=== PATIENT | male | born 1965 | race Caucasian/White ===

== ENCOUNTER 2017-05-27 21:50 | Emergency (ER) | payer OTHER ==
[~2017-05-27] VITALS: Ht 190.5 cm; Wt 95.3 kg
--- NOTE | ~2017-05-27 | EKG ---
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 05/28/17 1422 2219 18 Rito Floyd MD, FACC /EPI
[2017-05-27 22:13] LABS: URINE BILIRUBIN NEGATIVE (Negative); URINE BLOOD NEGATIVE (Negative); URINE COLOR YELLOW; URINE GLUCOSE-RANDOM* NEGATIVE (Negative); URINE KETONES NEGATIVE (Negative); URINE LEUKOCYTES-REFLEX NEGATIVE (Negative); URINE PROTEIN (DIPSTICK) NEGATIVE (Negative); URINE SPECIFIC GRAVITY 1.015 (1.003-1.035); URINE UROBILINOGEN 0.2 E.U./dl (0.2-1.0)
[2017-05-27 22:21] LABS: AMP/METHAMP POSITIVE (Negative); BARBITURATES Negative (Negative); BENZODIAZEPINES POSITIVE (Negative); COCAINE Negative (Negative); METHADONE Negative (Negative); OPIATES Negative (Negative); PCP Negative (Negative); THC Negative (Negative)
[2017-05-27 22:51] LABS: ABSOLUTE NEUTROPHILS 3.9 thou/uL (1.4-8.2); BASOPHILS 0.9 % (0.0-2.0); EOSINOPHILS 1.4 % (0.0-3.0); HEMATOCRIT 41.1 % (42.0-52.0); HEMOGLOBIN 14.2 gm/dL (14.0-18.0); LYMPHOCYTES 29.2 % (24.0-44.0); MCH 35.3 pg (26.0-34.0); MCHC 34.5 g/dL (28.0-37.0); MCV 102.4 fL (80.0-100.0); MONOCYTES 9.2 % (1.0-8.0); PLATELET COUNT 230 thou/uL (150-400); POLYS 59.3 % (36.0-66.0); RBC 4.01 mil/uL (4.50-6.00); RDW 13.6 % (10.5-14.5); WBC 6.6 thou/uL (4.0-11.0)
[2017-05-27 22:53] LABS: MANUAL DIFF NO
[2017-05-27 22:59] LABS: ANION GAP 10 mmol/L (7-16); BUN 13 mg/dL (7-18); CALCIUM 9.3 mg/dL (8.5-10.1); CHLORIDE 100 mmol/L (98-107); CO2 27 mmol/L (21-32); GLUCOSE 196 mg/dL (74-106); POTASSIUM 3.6 mmol/L (3.5-5.1); SODIUM 137 mmol/L (136-145)
[2017-05-27 23:08] LABS: ALBUMIN 3.6 g/dL (3.4-5.0); ALKALINE PHOSPHATASE 52 U/L (46-116); MAGNESIUM 1.4 mg/dL (1.8-2.4); SGOT 33 U/L (15-37); SGPT 47 U/L (30-65); TOTAL PROTEIN 6.8 g/dL (6.4-8.2); TROPONIN-I < 0.04 ng/mL (<0.06)
[2017-05-27 23:37] LABS: SALICYLATE < 2.8 mg/dL (2.8-20.0)
[2017-05-27 23:39] LABS: ACETAMINOPHEN < 2 ug/mL (10-30)
[2017-05-28] MEDS ORDERED: MAG-OXIDE400 MG PO (01:28)
[2017-05-28] MEDS ORDERED: ATIVAN1 MG PO (01:28)
[2017-05-28] MEDS ORDERED: CLONIDINE0.1 PO (01:28)
[2017-05-28] MEDS ORDERED: TRAMADOL 50 MG50 MG PO (01:30)
[2017-05-28 02:24] VITALS: BP 169/99
== END 2017-05-28 02:25 | disposition home or self-care (01) ==
LOC: ER 21:50
PROVIDERS: Emergency Medicine
DX: F10.10 Alcohol abuse, uncomplicated (principal); D53.9 Nutritional anemia, unspecified; E83.42 Hypomagnesemia; K40.90 Unilateral inguinal hernia, without obstruction or gangrene, not specified as recurrent; F15.10 Other stimulant abuse, uncomplicated; I10 Essential (primary) hypertension; F17.210 Nicotine dependence, cigarettes, uncomplicated; Z88.0 Allergy status to penicillin

== ENCOUNTER 2019-03-21 23:53 | Emergency (ER) | payer OTHER ==
[~2019-03-21] VITALS: Ht 190.5 cm; Wt 81.7 kg
[~2019-03-21 23:53] MED LIST: ATIVAN1 MG PO; CLONIDINE0.1 PO; MAG-OXIDE400 MG PO; TRAMADOL 50 MG50 MG PO
[2019-03-22] MEDS ORDERED: MEDROLDOSEPACK PO (01:21)
[2019-03-22 01:40] VITALS: BP 143/114
== END 2019-03-22 01:41 | disposition home or self-care (01) ==
LOC: ER 23:53
DX: M25.551 Pain in right hip (principal); F17.210 Nicotine dependence, cigarettes, uncomplicated; Z88.0 Allergy status to penicillin

== ENCOUNTER 2019-10-29 16:41 | Emergency (ER) | payer OTHER ==
[~2019-10-29] VITALS: Ht 190.5 cm; Wt 83.9 kg
[~2019-10-29 16:41] MED LIST changes: +MEDROLDOSEPACK PO
[2019-10-29 17:35] LABS: ABSOLUTE NEUTROPHILS 3.5 thou/uL (1.4-8.2); BASOPHILS 0.7 % (0.0-2.0); EOSINOPHILS 0.7 % (0.0-3.0); HEMOGLOBIN 15.6 gm/dL (14.0-18.0); LYMPHOCYTES 41.5 % (24.0-44.0); MCHC 34.7 g/dL (28.0-37.0); MONOCYTES 3.5 % (1.0-8.0); PLATELET COUNT 179 thou/uL (150-400); POLYS 53.6 % (36.0-66.0); RBC 4.74 mil/uL (4.50-6.00); RDW 14.7 % (10.5-14.5); WBC 6.4 thou/uL (4.0-11.0)
[2019-10-29 17:46] LABS: ANION GAP 7 mmol/L (7-16); BUN 17 mg/dL (7-18); CALCIUM 7.8 mg/dL (8.5-10.1); CHLORIDE 101 mmol/L (98-107); CO2 29 mmol/L (21-32); CREATININE 0.9 mg/dL (0.7-1.3); GLUCOSE 113 mg/dL (74-106); POTASSIUM 3.4 mmol/L (3.5-5.1); SODIUM 137 mmol/L (136-145)
[2019-10-29 17:50] LABS: ALBUMIN 3.6 g/dL (3.4-5.0); SALICYLATE < 2.8 mg/dL (2.8-20.0); SGOT 35 U/L (15-37); SGPT 34 U/L (30-65); TOTAL BILIRUBIN 0.5 mg/dL (<0.1-1.0); TOTAL PROTEIN 6.8 g/dL (6.4-8.2)
[2019-10-29 18:32] LABS: AMP/METHAMP Negative (Negative); BARBITURATES Negative (Negative); BENZODIAZEPINES Negative (Negative); COCAINE Negative (Negative); METHADONE Negative (Negative); OPIATES Negative (Negative); PCP Negative (Negative)
[2019-10-29 19:08] VITALS: BP 106/68
== END 2019-10-29 19:58 | disposition home or self-care (01) ==
LOC: ER 16:41
PROVIDERS: Physician Assistant
DX: F10.129 Alcohol abuse with intoxication, unspecified (principal); F17.210 Nicotine dependence, cigarettes, uncomplicated; F15.10 Other stimulant abuse, uncomplicated; Z88.0 Allergy status to penicillin; Y90.9 Presence of alcohol in blood, level not specified

== ENCOUNTER 2021-04-09 20:19 | Emergency (ER) | payer OTHER | END 2021-04-09 21:11 | disposition left against medical advice (07) | LOC: ER 20:19 | DX: M79.662 Pain in left lower leg (principal); Z53.21 Procedure and treatment not carried out due to patient leaving prior to being seen by health care provider ==